=== PATIENT | male | born 1950 | race Caucasian/White ===

== ENCOUNTER 2018-08-06 06:03 | Emergency (ER) | payer OTHER ==
[2018-08-06 06:16] VITALS: BP 132/85; PULSE 71; RESP 22; TEMP 97.6; O2SAT 98
--- NOTE | 2018-08-06 07:21 | C.PDOC ---
History Of Present Illness 67 y/o male presents to ED with c/o bilateral arm pain for 3 months. Patient states he saw PMD for symptoms and given pain medication with no improvement. 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 Patient denies change in sensation, trauma, chest pain or any other complaints at this time. Time Seen by Provider: 08/06/18 07:04 Chief Complaint (Nursing): Upper Extremity Problem/Injury History Per: Patient History/Exam Limitations: no limitations Onset/Duration Of Symptoms: Days, Waxing/Waning Past Medical History Reviewed: Historical Data, Nursing Documentation, Vital Signs Vital Signs: Last Vital Signs Temp 97.6 F 08/06/18 06:10 Pulse 71 08/06/18 06:10 Resp 22 08/06/18 06:10 BP 132/85 08/06/18 06:10 Pulse Ox 98 08/06/18 06:10 - Medical History PMH: Anxiety, Arthritis, Cardia Arrhythmia Surgical History: No Surg Hx Family History: States: No Known Family Hx - Social History Hx Alcohol Use: Yes Hx Substance Use: No - Immunization History Hx Tetanus Toxoid Vaccination: No Hx Influenza Vaccination: No Hx Pneumococcal Vaccination: No Review Of Systems Cardiovascular: Negative for: Chest Pain Musculoskeletal: Positive for: Arm Pain Skin: Negative for: Rash Neurological: Negative for: Weakness, Numbness Physical Exam - Physical Exam Appears: Non-toxic, No Acute Distress Skin: Warm, Dry, No Rash Head: Atraumatic, Normacephalic Eye(s): bilateral: Normal Inspection Oral Mucosa: Moist Extremity: Capillary Refill (<2 seconds), No Deformity, No Swelling, Other Neurological/Psych: Oriented x3, Normal Speech, Normal Motor, Normal Sensation ED Course And Treatment O2 Sat by Pulse Oximetry: 98 (RA) Pulse Ox Interpretation: Normal Disposition Counseled Patient/Family Regarding: Need For Followup, Rx Given - Disposition Disposition Time: 07:26 Additional Instructions: Siga con [facility] Prescriptions: Prednisone [Deltasone] 60 mg PO DAILY #12 tablet Instructions: Peripheral Neuropathy Forms: Gen Discharge Inst [place], [employer] [facility] ([place]) - POA Present On Arrival: None - Clinical Impression Clinical Impression: Peripheral neuropathy - Scribe Statement The provider has reviewed the documentation as recorded by the Scribyariel Galvan All medical record entries made by the Scribe were at my direction and personally dictated by me. I have reviewed the chart and agree that the record accurately reflects my personal performance of the history, physical exam, medical decision making, and the department course for this patient. I have also personally directed, reviewed, and agree with the discharge instructions and disposition.
== END 2018-08-06 07:36 | disposition home or self-care (01) ==
LOC: C.ER 06:03
DX: G62.9 Polyneuropathy, unspecified (principal)